=== PATIENT | female | born 1995 | race Caucasian/White ===

== ENCOUNTER 2018-12-15 13:39 | Emergency (ER) | payer OTHER ==
[~2018-12-15] VITALS: Ht 154.9 cm; Wt 60.3 kg
== END 2018-12-15 15:20 | disposition home or self-care (01) ==
LOC: ER 13:39
DX: L02.31 Cutaneous abscess of buttock (principal)

== ENCOUNTER 2018-12-19 20:15 | Emergency (ER) | payer OTHER ==
[~2018-12-19] VITALS: Ht 154.9 cm; Wt 59.0 kg
[2018-12-19] MEDS ORDERED: LEVAQUIN500 MG (20:24)
[2018-12-19] MEDS ORDERED: FLAGYL500MG (20:24)
== END 2018-12-19 22:57 | disposition home or self-care (01) ==
LOC: ER 20:15
DX: R00.2 Palpitations (principal)